=== PATIENT | female | born 1975 | race Two or more races ===

== ENCOUNTER 2023-04-08 06:24 | Inpatient (IN) | payer OTHER ==
[~2023-04-08] VITALS: Ht 152.4 cm; Wt 59.9 kg
[2023-04-08] VITALS (10 sets, daily range): BP systolic 120–155; BP diastolic 70–85; TEMP 97.1–98.4; O2SAT 96–100
[2023-04-08 07:34] LABS: PREGNANCY TEST URINE QUAL NEGATIVE (NEGATIVE)
[2023-04-08] MEDS ORDERED: BUPIVACAINE 0.25% 75 MG/30 ML VIAL ONE (07:34)
[2023-04-08] MEDS ORDERED: MIDAZOLAM HCL 2 MG/2ML VIAL ONE (07:55)
[2023-04-08] MEDS ORDERED: FENTANYL PF 250MCG/5ML AMPUL ONE (07:55)
[2023-04-08] MEDS ORDERED: FAMOTIDINE/PF INJ 20 MG/2 ML VIAL IV ONE (07:55)
[2023-04-08] MEDS ORDERED: HYDROMORPHONE INJ 2 MG/ML DISP.SYRIN ONE (07:55)
[2023-04-08] MEDS ORDERED: ROCURONIUM BROMIDE 50 MG/5 ML ONE (07:56)
[2023-04-08] MEDS ORDERED: CELLULOSE,OXIDIZED 1 EA PACK MC ONE ×2 (09:13→09:21)
[2023-04-08] MEDS ORDERED: FENTANYL PF 100MCG/2ML AMPUL ONE (10:26)
[2023-04-08] MEDS ORDERED: MORPHINE SULFATE INJ 2 MG/ML DISP.SYRIN IV ONE (13:00)
[2023-04-08] MEDS: IV D5 LR 1,000 ML IV PRN ×2 (13:27→23:23)
[2023-04-08] MEDS ORDERED: ONDANSETRON HCL/PF 4 MG/2 ML VIAL IV PRN (13:30)
[2023-04-08] MEDS: ACETAMINOPHEN W/ CODEINE#3 1 EA TABLET PO PRN ×2 (14:13→17:52)
[2023-04-08] MEDS: ANCEF 1 GM/50 ML D5W IV SCH ×4 (16:15→23:24)
[2023-04-08] MEDS ORDERED: MORPHINE SULFATE INJ 4 MG/ML DISP.SYRIN IV ONE ×2 (21:00)
[2023-04-09] MEDS: MORPHINE SULFATE INJ 2 MG/ML DISP.SYRIN IV PRN ×2 (00:51→05:57)
[2023-04-09] MEDS: ANCEF 1 GM/50 ML D5W IV SCH ×2 (08:03)
[2023-04-09] MEDS: ACETAMINOPHEN W/ CODEINE#3 1 EA TABLET PO PRN (09:16)
== END 2023-04-09 09:30 | disposition home or self-care (01) | DRG 743 ==
LOC: DS 06:24 → MED 11:22
PROVIDERS: ADMIT Internal Medicine; ATTEND Internal Medicine
PROC: 0UT90ZZ Resection of Uterus, Open Approach (ICD-10-PCS; principal; 2023-04-08)
DX: D25.9 Leiomyoma of uterus, unspecified (principal); Z98.82 Breast implant status
CPT/HCPCS: 36415; 84703-TC; 86850-TC; A4223; A6209; G0378; J0690; J1170; J2250; J2270; J2405; J2704; J2765; J3010; J3490; J7030; J7060